=== PATIENT | male | born 2005 | race Caucasian/White ===

== ENCOUNTER 2024-03-31 05:41 | Emergency (ER) | payer OTHER ==
[~2024-03-31] VITALS: Ht 177.8 cm; Wt 82.0 kg
[2024-03-31 05:42] VITALS: BP 126/68; TEMP 99.3; O2SAT 96
[2024-03-31] MEDS: NS 1,000 ML IV ONE (06:43)
[2024-03-31] MEDS: KETOROLAC 30 MG/ML 1ML VIAL IV ONE (06:44)
[2024-03-31 06:48] LABS: BASO # 0.1 10^3/uL (0.0-0.2); BASO % 0.4 % (0.0-1.0); EOS % 0.2 % (0.0-3.0); HEMATOCRIT 41.4 % (42.0-52.0); HEMOGLOBIN 14.7 g/dl (13.5-17.5); LYMPH # 0.8 10^3/uL (1.5-5.0); LYMPH % 5.7 % (24.0-44.0); MEAN CORPUSCULAR HEMOGLOBIN 29.8 pg (27.0-33.0); MEAN CORPUSCULAR HGB CONC 35.5 g/dl (32.0-36.5); MEAN CORPUSCULAR VOLUME 83.8 fl (80.0-96.0); MONO # 1.3 10^3/uL (0.0-0.8); MONO % 8.9 % (2.0-8.0); NEUTROPHILS # 12.2 10^3/uL (1.5-8.5); NEUTROPHILS % 84.3 % (36.0-66.0); PLATELET COUNT, AUTOMATED 214 10^3/uL (150-450); RED BLOOD COUNT 4.94 10^6/uL (4.30-6.10); WHITE BLOOD COUNT 14.5 10^3/uL (4.0-10.0)
[2024-03-31 07:12] LABS: ALKALINE PHOSPHATASE 76 U/L (46-116); ALT/SGPT 16 U/L (7.0-40); AST/SGOT 9 U/L (<34); BILIRUBIN,TOTAL 0.7 MG/DL (0.3-1.2); BLOOD UREA NITROGEN 10 MG/DL (9-23); CARBON DIOXIDE LEVEL 27 MMOL/L (20-31); CHLORIDE LEVEL 104 MMOL/L (98-107); CREATININE FOR GFR 1.02 MG/DL (0.70-1.30); GLUCOSE, FASTING 96 MG/DL (60-100); SODIUM LEVEL 138 MMOL/L (136-145)
[2024-03-31 07:20] LABS: MONO REFLEX EBV COMP NEGATIVE (NEGATIVE)
[2024-04-01] MEDS ORDERED: UNRESOLVED CLARIFICATION ENTRY XX SCH (00:01)
[2024-04-02 16:11] LABS: EBV VIRAL CAPSID AG IgG >600.0 U/mL (0.0-17.9); EBV VIRAL CAPSID AG IgM <36.0 U/mL (0.0-35.9)
== END 2024-03-31 08:00 | disposition home or self-care (01) ==
LOC: M ED 05:41
DX: J03.90 Acute tonsillitis, unspecified (principal); B34.9 Viral infection, unspecified
CPT/HCPCS: 80053; 85025; 86308; 86664; 86665; 87486; 87581; 87633; 87798; 96361; 96374; 99283; J1885

== ENCOUNTER 2025-01-01 10:14 | Emergency (ER) | payer OTHER ==
[~2025-01-01] VITALS: Ht 180.3 cm; Wt 77.8 kg
[2025-01-01] MEDS ORDERED: TRET0.02 (10:27)
[2025-01-01] MEDS ORDERED: SULF10EM7 (10:27)
[2025-01-01] MEDS ORDERED: DOXY100T27 (10:27)
[2025-01-01 18:28] VITALS: BP 116/74; TEMP 98.9; O2SAT 97
== END 2025-01-01 18:38 | disposition home or self-care (01) ==
LOC: M ED 10:14
DX: T76.21XA Adult sexual abuse, suspected, initial encounter (principal); F10.10 Alcohol abuse, uncomplicated; Z79.2 Long term (current) use of antibiotics; Z79.899 Other long term (current) drug therapy